=== PATIENT | male | born 1985 | race African-American/Black ===

== ENCOUNTER 2021-08-22 04:21 | Emergency (ER) | payer BC ==
[~2021-08-22] VITALS: Ht 177.8 cm; Wt 96.9 kg
[2021-08-22] MEDS ORDERED: cefTRIAXone IM 500 MG VIAL. IM ONE (05:00)
[2021-08-22] MEDS ORDERED: DOXYCYCLINE HYCLATE 100 MG TABLET PO ONE (05:00)
[2021-08-22] MEDS ORDERED: HYDROcodone/APAP 5/325MG 1 TAB TABLET PO ONE (05:30)
--- NOTE | 2021-08-22 05:49 | PHYS DOC ---
Past Medical History Past Medical History: No Pertinent History Past Surgical History: Other Additional Past Surgical Histo: R shoulder Smoking Status: Never Smoker Alcohol Use: Rarely Drug Use: None General Adult EDM: Chief Complaint: TESTICULAR PAIN OR INJURY HPI: HPI: 36-year-old male presents with report of right testicular swelling and pain which started on Monday morning. Patient reports he has followed at urgent care and was started on Cipro. Patient was encouraged to present to diagnostic imaging for ultrasound evaluation. Patient denies significant improvement despite taking antibiotic therapy. Patient reports last taking some Tylenol last night at approximately 1900. Denies fever or chills. Patient reports he is sexually active. Denies known exposure to STD. Patient denies penile discharge. Denies trauma. Review of Systems: Review of Systems: Constitutional: Denies fever or chills Eyes: Denies redness or eye pain HENT: Denies nasal congestion or sore throat Respiratory: Denies cough or shortness of breath Cardiovascular: Denies chest pain or palpitations GI: Denies abdominal pain, nausea, or vomiting : Reports dysuria and right testicular pain and swelling Musculoskeletal: Denies back pain or joint pain Integument: Denies rash or skin lesions Neurologic: Denies headache, focal weakness or sensory changes Complete systems were reviewed and found to be within normal limits, except as documented in this note. Heart Score: C/O Chest Pain: N/A Current Medications: Current Medications Medications (Trade) Dose Ordered Sig/Amalia Start Time Stop Time Status Last Admin Dose Admin Acetaminophen/ Hydrocodone Bitart (Lortab 5/325) 1 tab 1X ONCE 08/22/21 05:30 08/22/21 05:31 DC 08/22/21 05:37 1 TAB Ceftriaxone Sodium (Rocephin Im) 500 mg 1X ONCE 08/22/21 05:00 08/22/21 05:01 DC 08/22/21 05:00 500 MG Doxycycline Hyclate (Vibra-Tab) 100 mg 1X ONCE 08/22/21 05:00 08/22/21 05:01 DC 08/22/21 04:57 100 MG Allergies: Allergies: Allergies Coded Allergies Type Severity Reaction Last Updated Verified No Known Drug Allergies 08/22/21 No Physical Exam: PE: Constitutional: Well developed, well nourished, no acute distress, non-toxic appearance HENT: Normocephalic, atraumatic Eyes: Conjunctiva normal, no discharge Neck: Normal range of motion, supple Lungs & Thorax: No respiratory distress, equal chest rise and fall Abdomen: Soft, no tenderness : Right testicular tenderness and swelling, left testicle without pain or swelling, no penile discharge Skin: Warm, dry, no erythema, no rash Extremities: No tenderness, ROM intact, no edema Neurologic: Alert and oriented X 3, no focal deficits noted Psychologic: Affect normal, judgment normal Current Patient Data: Vital Signs: Vital Signs Date Time Temp Pulse Resp B/P (MAP) Pulse Ox O2 Delivery O2 Flow Rate FiO2 08/22/21 04:25 98.9 86 18 131/78 (95) 99 Room Air 98.9 EKG: EKG: [] Radiology/Procedures: Radiology/Procedures: PROCEDURE: TESTICULAR/SCROTUM Testicular ultrasound History: Reason: right testicular pain/swelling / Spl. Instructions: / History: . Comparison: None. Technique: Multiple grayscale, color flow Doppler and Doppler spectral analysis images of the scrotum are obtained. Findings: Right testicle measures 4.4 x 2.8 x 3 cm. The left testicle measures 4.3 x 3.2 x 2.4 cm. Right testicle demonstrates normal parenchymal echogenicity. The right epididym is is enlarged, heterogeneous, and hypervascular. Left testicle demonstrates normal parenchymal echogenicity. The left epididy mis is unremarkable. There is no hydrocele or varicocele. Scrotal hyperemia or swelling are not seen. Doppler imaging demonstrates normal flow to both testicles, without evidence of torsion. IMPRESSION: The right epididymis is enlarged, heterogeneous, and hypervascular suggesting epididymitis. Electronically signed by: Owen Ruiz MD (08/22/2021 6:20 AM) [facility] Course & Med Decision Making: Course & Med Decision Making Pertinent Labs and Imaging studies reviewed. (See chart for details) Patient presents with report of right testicular pain and swelling that has been ongoing since Monday. Patient has been started on ciprofloxacin without significant improvement. Pain addressed. Cannot exclude chlamydia/gonorrhea. Urine chlamydia/gonorrhea cultures pending. Empiric antibiotic initiated with IM Rocephin and p.o. doxycycline. Ultrasound pending. US with signs of epididymitis. Patient stable for discharge with outpatient follow-up with PCP. Discussed findings and plan with patient, who acknowledges understanding and agreement. Dragon Disclaimer: Néstor Disclaimer: This electronic medical record was generated, in whole or in part, using a voice recognition dictation system. Departure Departure Impression: Primary Impression: Acute epididymitis Disposition: HOME / SELF CARE / HOMELESS Condition: STABLE Referrals: ZAKIYA SANTOYO MD (PCP) Patient Instructions: Epididymitis Additional Instructions: Take previously prescribed Cipro as directed. Please take new antibiotic in addition. May use [id number] ibuprofen or Aleve as needed. Scripts Hydrocodone/Acetaminophen (Hydrocodone-Acetamin 5-325 mg) 1 Each Tablet 0.5-1 EACH PO Q6HRS PRN for PAIN, #10 TAB Prov: JANICE FRANCISCO DO 08/22/21 Doxycycline Hyclate (DOXYCYCLINE HYCLATE) 100 Mg Capsule 1 CAP PO BID, #20 CAP Prov: JANICE FRANCISCO DO 08/22/21 JANICE FRANCISCO DO Aug 22, 2021 05:49
--- NOTE | 2021-08-22 06:23 | RAD ---
Testicular ultrasound History: Reason: right testicular pain/swelling / Spl. Instructions: / History: . Comparison: None. Technique: Multiple grayscale, color flow Doppler and Doppler spectral analysis images of the scrotum are obtained. Findings: Right testicle measures 4.4 x 2.8 x 3 cm. The left testicle measures 4.3 x 3.2 x 2.4 cm. Right testicle demonstrates normal parenchymal echogenicity. The right epididymis is enlarged, heter ogeneous, and hypervascular. Left testicle demonstrates normal parenchymal echogenicity. The left epididymis is unremarkable. There is no hydrocele or varicocele. Scrotal hyperemia or swelling are not seen. Doppler imaging demonstrates normal flow to both testicles, without evidence of torsion. IMPRESSION: The right epididymis is enlarged, heterogeneous, and hypervascular suggesting epididymitis. Electronically signed by: Owen Ruiz MD (08/22/2021 6:20 AM) [facility]
[2021-08-22 06:32] LABS: BILIRUBIN,URINE NEGATIVE (NEG); CLARITY,URINE CLEAR; COLOR,URINE AMBER; NITRITE,URINE NEGATIVE (NEG); PROTEIN,URINE 100 mg/dL (NEG-TRACE)
[2021-08-22] MEDS ORDERED: DOXY100C3 PO (06:33)
[2021-08-22] MEDS ORDERED: HYDR-2759 PO (06:33)
[2021-08-22 06:42] LABS: BACTERIA,URINE 0 /HPF (0-FEW)
[2021-08-22 07:07] VITALS: BP 136/80
== END 2021-08-22 07:07 | disposition home or self-care (01) ==
LOC: ER 04:21
DX: N45.1 Epididymitis (principal)
CPT/HCPCS: 76870; 81001; 87086; 87491; 87591; 96372; 99284; J0696